=== PATIENT | female | born 1980 | race Asian ===

== ENCOUNTER → 2016-08-03 17:42 | Observation (INO) ==
[2016-08-03 17:14] LABS: Bacteria,Urine Moderate per hpf (None-Few); Hyaline Casts,Urine None Seen per lpf (None-Few); RBC,Urine 0-3 per hpf (0-3); Squamous Epithelial Cell,Urine Many per lpf (None-Few)
[2016-08-03 17:17] LABS: Bilirubin,Urine Negative (Negative); Blood,Urine Trace-intact (Negative); Clarity,Urine Clear (Clear); Color,Urine Yellow (Yellow); Glucose,Urine (UA) Normal (Normal); Ketones,Urine Negative (Negative); Leukocyte Esterase,Urine Small (Negative); Nitrite,Urine Negative (Negative); Protein,Urine Negative (Neg-Trace); Specific Gravity,Urine 1.015 (1.010-1.025); Urobilinogen,Urine Normal (Normal)
--- NOTE | 2016-08-03 17:36 | OB/GYN Progress Note ---
Date of Encounter: 08/03/16 Time of Encounter: 17:33 - Assessment and Plan (1) Vaginal bleeding in Current Visit: Yes Status: Acute No evidence of bleeding by exam. RNST without uc's, CVX is closed. Abd non- tender. Will d/c home. Bleeding precuations given. Qualifiers: Trimester: third trimester Qualified Code(s): O46.93 - Antepartum hemorrhage, unspecified, third trimester (2) 33 weeks gestation of Current Visit: Yes Status: Acute Subjective - Subjective Principal diagnosis: 33 weeks gestation with bleeding Interval history: 36 yo female presents with blood noted x 1 on toilet paper when she wiped. No uc's and no lof. No UTI sx's. No recent trauma or SI. Objective - Vital Signs Vital Signs: Intake and Output 08/03/16 08/03/16 08/03/16 07:59 15:59 23:59 Other: Weight 69.6 kg Patient Weight 08/03/16 23:59 Weight 69.6 kg - Exam Auscultation: bilateral: normal Abdomen: Present: normal appearance Cervical dilation: cl/70/-2 Comments: SSE is negative, no blood in vaginal vault, no evidence of hemorrhoids, no evidence of vaginal trauma. - Labs Labs: Abnormal lab results Urine Blood Trace-intact (Negative) H 08/03/16 17:05 Ur Leukocyte Esterase Small (Negative) H 08/03/16 17:05 Urine Microscopic WBC 5-15 per hpf (0-3) H 08/03/16 17:05 Ur Squamous Epith Cells Many per lpf (None-Few) H 08/03/16 17:05 Urine Bacteria Moderate per hpf (None-Few) H 08/03/16 17:05 Ur Culture Indicated? YES (NO) A 08/03/16 17:05
--- NOTE | 2016-08-03 18:53 | OB/GYN Progress Note ---
Date of Encounter: 08/12/16 Time of Encounter: 18:32 - Assessment and Plan (1) Vaginal bleeding in Status: Acute No evidence of bleeding by exam. RNST without uc's, CVX is closed. Abd non- tender. Will d/c home. Bleeding precuations given. Qualifiers: Trimester: third trimester Qualified Code(s): O46.93 - Antepartum hemorrhage, unspecified, third trimester (2) 33 weeks gestation of Status: Acute Objective - Latest Vital Signs Latest vital signs: Intake and Output 08/03/16 08/03/16 08/03/16 07:59 15:59 23:59 Other: Weight 69.6 kg Patient Weight 08/03/16 23:59 Weight 69.6 kg - Labs Labs: Laboratory Results - last 24 hr 08/03/16 17:05 Urine Color Yellow Urine Clarity Clear Urine pH 7.0 Ur Specific [place] 1.015 Urine Protein Negative Urine Glucose (UA) Normal Urine Ketones Negative Urine Blood Trace-intact H Urine Nitrite Negative Urine Bilirubin Negative Urine Urobilinogen Normal Ur Leukocyte Esterase Small H Urine Microscopic RBC 0-3 Urine Microscopic WBC 5-15 H Ur Squamous Epith Cells Many H Urine Bacteria Moderate H Hyaline Casts None Seen Ur Culture Indicated? YES A
== END | disposition home or self-care (01) ==
LOC: 1NENULAB
PROVIDERS: ADMIT Obstetrics & Gynecology; ATTEND Obstetrics & Gynecology

== ENCOUNTER 2016-09-15 10:09 | Inpatient (IN) ==
[~2016-09-15 10:09] MED LIST: Famotidine 20 MG/2 ML VIAL IVP PRN; Naloxone 0.4 MG/ML INJ IVP PRN; Ondansetron 4 MG/2 ML VIAL IVP PRN
[2016-09-15 10:23] LABS: Basophils % 0.4 %; Eosinophils # 0.2 K/mcL (0.0-0.6); Eosinophils % 1.8 %; Hematocrit 34.4 % (35.3-44.9); Hemoglobin 11.1 g/dL (11.5-15.4); Immature Granulocytes % 1.6 % (0-4); Lymphocytes # 1.4 K/mcL (0.6-4.6); Lymphocytes % 16.9 %; Mean Corpuscular HGB Conc 32.3 g/dL (31.6-35.5); Mean Corpuscular Hemoglobin 28.9 pg (28.0-33.3); Mean Corpuscular Volume 89.6 fL (83.0-100.0); Mean Platelet Volume 9.8 fL (9.4-12.4); Monocytes # 0.7 K/mcL (0.0-1.3); Monocytes % 9.1 %; Neutrophils # 5.7 K/mcL (1.6-8.9); Platelet Count 151 K/mcL (140-400); Red Blood Count 3.84 M/mcL (3.82-4.97); Red Cell Distribution Width 14.4 % (11.5-14.5); Segmented Neutrophils % 70.2 %
[2016-09-15] MEDS ORDERED: Oxytocin 20 units/ LR 1000 mL 20 UNIT/1,000 ML BAG IVC SCH (11:30)
[2016-09-15] MEDS ORDERED: Oxytocin 20 units/ LR 1000 mL 20 UNIT/1,000 ML BAG IVC ONE (11:30)
[2016-09-15] MEDS: Ringers Solution, Lactated 1,000 ML IVC SCH ×2 (11:39→22:14)
--- NOTE | 2016-09-15 11:45 | Anesthesia Evaluation PreOp ---
Date of Encounter: 09/14/16 Time of Encounter: 11:43 - Past History Planned Operation: srinivasan Cardiac History: Denies any Significant Hx Pulmonary History: Former smoker (quit during ), Pack/yr (15) MANAGER PSYCHOLOGY History: Denies Any Significant HX Other Medical History: GERD Anesthesia History: No Prior Anesthetic Complications, Past Anesthesia (srinivasan x 3) : Yes Test: Positive Alcohol Use: none (during preg) Drug use: none Medications and Allergies Ferrous Sulfate 08/03/16 [History] Caplet 08/03/16 [History] Allergies dextromethorphan [From NyQuil] Allergy (Mild, Verified 03/19/15 10:48) Difficulty Breathing doxylamine [From NyQuil] Allergy (Mild, Verified 03/19/15 10:48) Difficulty Breathing pseudoephedrine [From NyQuil] Allergy (Mild, Verified 03/19/15 10:48) Difficulty Breathing - Meds/Allergy Pre-op Review Medications Reviewed: Yes Allergies Reviewed: Yes Beta Blockers on Current Med List: No Anesthesia Results - Labs 09/15/16 10:00 Anesthesia Exam 97.8 83 12 119/73 fht 144 Height: 5'2" Weight: 71 kg NPO (# of Hours): 2 Pain Scale: 2 Pain Scale Used: Numeric (1 - 10) - HEENT Pupil (Motor): Pupils equal Mallampati: II Teeth: Normal Oral Opening: Greater than 3 - MANAGER PSYCHOLOGY LOC: Oriented MANAGER PSYCHOLOGY Motor: Normal RUE, Normal LUE, Normal RLE, Normal LLE, Normal Face MANAGER PSYCHOLOGY Sensory: Normal: RUE, LUE, RLE, LLE, Face - Cardiac Rhythm: Regular Murmur: None - Pulmonary Breath Sounds: bilateral Clear Respiratory Effort: Symmetrical Anesthesia Assess/Plan ASA Score: 2 Modified Asbury Scale for Level of Consciousness: Cooperative, oriented, and tranquil Anesthetic Plan: Regional Autologous Blood: No Monitoring Plan: Standard Monitors Recovery Plan: Other (risks discussed, questions answered, consented)
--- NOTE | 2016-09-15 11:47 | OB/GYN History & Physical ---
Date of Encounter: 09/15/16 Time of Encounter: 11:46 Assessment and Plan (1) Rupture of membranes Current visit: Yes Status: Acute ok for epidural, start pitocin for IOL, anticipate History of Present Illness HPI: Ms. Ferrari is a 36 year old female @ 39+3 weeks who presented with complaints of leaking of fluid @ 7am, no bleeding, currently not edilia, GBS neg. Past Med Surg Social Fam HX - Past Medical History Medical history: no medical history Psychiatric history: no psych history - Past Surgical History Surgical History: no surgical history - Social History Smoking Status: Former smoker Smokeless Tobacco Status: No Alcohol use: none (during preg) Drug use: none - Family History Mother Family Member Ethnicity: Living Status: Still Living Hx Family Cardiac Disorders: No Hx Family Respiratory Disorders: No Hx Family Cancer: No Hx Family GI Disorders: No Hx Family Genitourinary Disorders: No Hx Family Endocrine Disorder: No Hx Family Musculoskeletal Disorders: No Hx Family Neuromuscular Disorders: No Hx Family Neurologic Disorders: No Hx Family HEENT Disorders: No Hx Family Autoimmune Disorders: No Hx Family Reproductive Disorders: No Hx Family Psychosocial Disorders: No Hx Family Medical Disorders: No Obstetrical History - Pregnancies : 5 Para: 3 Term: 3 Ab's: 1 Livin Medications and Allergies Ferrous Sulfate 08/03/16 [History] Caplet 08/03/16 [History] Allergies dextromethorphan [From NyQuil] Allergy (Mild, Verified 03/19/15 10:48) Difficulty Breathing doxylamine [From NyQuil] Allergy (Mild, Verified 03/19/15 10:48) Difficulty Breathing pseudoephedrine [From NyQuil] Allergy (Mild, Verified 03/19/15 10:48) Difficulty Breathing Review of System OB All systems PM: reviewed and no additional remarkable complaints except as stated Exam - Constitutional Constitutional: well developed - HEENT HEENT: PERRL - Neck Neck exam: supple - Lungs Respiratory exam: CTAB - Cardiovascular Cardiovascular exam: RRR - Extremities Extremities exam: warm - Cervix Dilation: 4 Effacement: 90 Station: -2 Results Result Diagrams: 09/16/16 04:32 Abnormal lab results Hgb 11.1 g/dL (11.5-15.4) L 09/15/16 10:00 Hct 34.4 % (35.3-44.9) L 09/15/16 10:00 All other labs normal. - VTE Reasons for not Prescribing Prophylaxis: Treatment not Indicated - Low risk for VTE
[2016-09-15] MEDS ORDERED: *HR* FentaNYL (PF) 100 MCG/2 ML VIAL EP ONE (13:40)
[2016-09-15] MEDS ORDERED: *HR* Ropivacaine/PF 0.2% 10 ML AMPUL EP ONE (13:40)
[2016-09-15] MEDS ORDERED: *HR* Nalbuphine 20 MG/ML AMPUL ONE (13:41)
[2016-09-15] MEDS ORDERED: *HR* FentaNYL (PF) 100 MCG/2 ML VIAL ONE (13:42)
[2016-09-15] MEDS ORDERED: *HR* Ropivacaine/PF 0.2% 10 ML AMPUL ONE (13:42)
[2016-09-15] MEDS ORDERED: Epidural Premix (fent/bupiv) 110 ML EP ONE ×2 (13:43→22:20)
[2016-09-15] MEDS ORDERED: Epidural Premix (fent/bupiv) 110 ML EP SCH (13:45)
--- NOTE | 2016-09-15 14:12 | Anesthesia Procedures ---
Date of Encounter: 09/15/16 Time of Encounter: 14:10 Procedures: Anesthesia - Epidural/Spinal Patient examined: Yes OB Eval: Gestational age: 39.2 OB Eval: : 4 OB Eval: Hx Para: 3 OB Eval: Dilated at (cm): 5 OB Eval: Contractions: Non-stressed pattern Consent Obtained: Yes Supplemental Oxygen: None/Room Air Site Prep: Aseptic Technique, 0.5% Chlorhexidine/Alcohol Patient position: upright Local Anesthetic: Lidocaine 1% Amount of Local Anesthetic used: 3 Touhy Needle Gauge: 18 Touhy Needle Depth (cm): 8 Catheter Depth at Skin (cm): 18 Test Dose (1.5% Lido + Epi): Volume given (mls): 3 Test Dose Result: Negative Loading Dose: Fentanyl (mcg): 100 Loading Dose: Other: rop 0.2 10cc Loading Dose Administered: Thru Touhy Needle Infusion Med: 0.125% Bupivacaine w/ 2 mcg/ml Fentanyl Infusion Rate (mls/hr): 14 (pcea 5cc q30") Catheter Secured in Place: Tegaderm Interspace Used: L2-L3 Loss of Resistance (JORDAN): Yes Blood: No CSF: No Paresthesia: No Procedure: aseptic, no complications, effective Vitals + FHT's: 110/78 66 fht 142
--- NOTE | 2016-09-15 14:38 | OB Labor Progress Note ---
Date of Encounter: 09/15/16 Time of Encounter: 14:36 Labor Progress Note - Subjective Subjective: patient now has an epidural - Vital Signs Vital Signs: VSS - Cervix Cervix: 5cm - Heart Tones Heart Tones: FHT CAT 1 - Plan Plan: continue pitocin, now @ 8, anticipate
--- NOTE | 2016-09-15 16:51 | OB Labor Progress Note ---
Date of Encounter: 09/15/16 Time of Encounter: 16:51 Labor Progress Note - Subjective Subjective: patient doing well - Vital Signs Vital Signs: VSS - Cervix Cervix: 9cm - Heart Tones Heart Tones: 135/mod tara/+accels, non recurrent tara decels - Plan Plan: cont labor progress, anticipate
--- NOTE | 2016-09-15 20:20 | OB Labor Progress Note ---
Date of Encounter: 09/15/16 Time of Encounter: 20:18 Labor Progress Note - Plan Plan: patient is pushing, FHT CAT 2, head @ +1, C/S for indications
[2016-09-15] MEDS ORDERED: Acetaminophen 325 MG TABLET PO ONE (21:43)
[2016-09-15] MEDS: Piperacillin/Tazobactam 3.375 GM in D5% in Water (Mini-Bag+) 100 ML IVPB SCH (22:09)
[2016-09-15] MEDS ORDERED: Metoclopramide 10 MG/2 ML VIAL IVP PRN (23:14)
--- NOTE | 2016-09-15 23:17 | OB Labor Progress Note ---
Date of Encounter: 09/15/16 Time of Encounter: 23:09 Labor Progress Note - Plan Plan: I went in to talk to the patient regarding doing a C section. I recommended a C/ S based on 1. arrest of descent 2. CAT tracing (patient keeps having late decels), 3. chorioamnionitis, currently on Zosyn. I explained tat even though this is not an emergency, I believe it is the best next step in management. She signed her tubal papers in May so I will be doing a btl as well. Anesthesia informed.
[2016-09-15] MEDS ORDERED: Chloroprocaine/PF 20 ML VIAL INFILT ONE (23:30)
[2016-09-15] MEDS ORDERED: *HR* HYDROmorphone (PF) 1 MG/ML SYRINGE IVP PRN (23:33)
[2016-09-15] MEDS ORDERED: Ringers Solution, Lactated 1,000 ML ONE (23:36)
[2016-09-15] MEDS ORDERED: *HR* Oxytocin 10 UNIT/ML VIAL IM ONE (23:49)
[2016-09-16] MEDS ORDERED: *HR* Morphine Sulfate/PF 5 MG/10 ML AMPUL ONE (00:14)
[2016-09-16] MEDS ORDERED: Bupivacaine-MPF 0.25% 10 ML VIAL ONE ×2 (00:23→00:48)
[2016-09-16] MEDS ORDERED: *HR* FentaNYL (PF) 100 MCG/2 ML VIAL ONE (00:53)
[2016-09-16] MEDS ORDERED: Chloroprocaine/PF 20 ML VIAL INFILT ONE (01:10)
[2016-09-16] MEDS ORDERED: Simethicone 80 MG TAB.CHEW PO PRN (01:22)
[2016-09-16] MEDS ORDERED: Sennosides 8.6 MG TABLET PO PRN (01:22)
[2016-09-16] MEDS ORDERED: Ondansetron 4 MG/2 ML VIAL IVP PRN (01:22)
[2016-09-16] MEDS ORDERED: Metoclopramide 10 MG/2 ML VIAL IVP PRN (01:22)
[2016-09-16] MEDS ORDERED: *HR* HYDROmorphone (PF) 1 MG/ML SYRINGE IVP PRN (01:29)
[2016-09-16] MEDS ORDERED: Ringers Solution, Lactated 1,000 ML IVC SCH (01:30)
[2016-09-16] MEDS ORDERED: Oxytocin 20 units/ LR 1000 mL 20 UNIT/1,000 ML BAG IV SCH (01:30)
[2016-09-16 04:54] LABS: Hemoglobin 10.3 g/dL (11.5-15.4); Mean Corpuscular HGB Conc 32.2 g/dL (31.6-35.5); Mean Corpuscular Hemoglobin 29.4 pg (28.0-33.3); Mean Corpuscular Volume 91.4 fL (83.0-100.0); Mean Platelet Volume 10.6 fL (9.4-12.4); Platelet Count 147 K/mcL (140-400); Red Cell Distribution Width 14.4 % (11.5-14.5)
[2016-09-16 05:12] LABS: Neutrophils # 21.6 K/mcL (1.6-8.9); Platelet Estimate Slight Decrease (Normal)
[2016-09-16] MEDS ORDERED: Oxytocin 20 UNIT in 0.9 % Sodium Chloride 1,000 ML IM SCH (06:18)
[2016-09-16] MEDS: Piperacillin/Tazobactam 3.375 GM in D5% in Water (Mini-Bag+) 100 ML IVPB SCH ×3 (06:25→21:43)
--- NOTE | 2016-09-16 06:43 | OB/GYN Procedure Note ---
Section - Date of procedure: 09/16/16 Preop diagnosis: arrest of descent, category 2 FHT tracing, other (chorio) Post-op diagnosis: same Procedure: section, primary low transverse, bilateral tubal ligation Surgeon: Roderick Stephens Estimated blood loss (cc): 600 Anesthesiologist: Osmany Chawla Director Quality Systems: Erasto Sol Anesthesia Type: Epidural section complications: none Disposition: L&D Recovery Room Specimens: Placenta, Right tube segment, Left tube segment - (s) Infant A Delivery Date: 09/16/16 Delivery Time: 00:08 Presentation: vertex Position: unknown Gender: Male Gram Weight: 4.055 kg at 1 minute: 8 at 5 minutes: 9 Shoulder Dystocia: not encountered Placenta: complete extraction Cord: nuchal cord, 3 umbilical vessels - Narrative Narrative: Patient was brought to the operating room with satisfactory epidural anesthesia. The abdomen was prepped and draped in a sterile fashion. A Pfannenstiel incision was made and carried sharply down to the level of fascia. The fascia was incised transversely. The fascia was dissected away from the underlying rectus muscles. With sharp and blunt dissection, rectus muscles were divided in midline. The perineum was entered bluntly. The incision was carried vertically with scissors. Transverse incision was made across the bladder peritoneum. The bladder was dissected away from the underlying lower uterine segment. Bladder retractor was placed to protect the bladder. The lower uterine segment was entered sharply with a scalpel. Incision was manually extended. Meconium stained amniotic fluid was encountered. The 's head was pulled up and delivered easily as were the shoulders and body. The mouth and oropharynx were suctioned. The cord was clamped and cut. The was passed off to the waiting media relations manager in satisfactory condition. APGARS 8/9. Placenta was extracted completely and found to be intact. Uterus was explored and found to be empty. Uterus was delivered through the abdominal incision and massaged vigorously. Intravenous Pitocin was administered. Clamps were placed about the margins of the uterine incision, which was closed primarily with a running locking stitch of 0 Vicryl with adequate hemostasis. Secondary running locking stitch was placed for extra strength to the wound. At this point, attention was diverted to the patient's tubes, a Raul clamp grasped the isthmic portion of each tube and approximately 1-cm knuckle on either side was tied off with two lengths of 0 plain catgut. Intervening knuckle was excised and passed off the field. The proximal end of the tubal mucosa was cauterized. Cul-de-sac and gutters were suctioned vigorously. The uterus was returned to its proper anatomic position in the abdomen. The fascia was closed with a simple running stitch of 0 vicryl. The skin was closed with running subcuticular of 4-0 vicryl. Uterus was expressed of its contents. Patient was brought to the recovery room in satisfactory condition. There were no complications. There was 600 cc of blood loss. All sponge, needle, and instrument counts were reported to be correct.
[2016-09-16] MEDS: Prenatal Vit/FA 1 EACH TABLET PO SCH (08:03)
[2016-09-16] MEDS: *HR* OxyCODONE/APAP 5/325 TABLET PO PRN (11:48)
[2016-09-16] MEDS: Ibuprofen 600 MG TABLET PO PRN (15:23)
[2016-09-16] MEDS: Oxytocin 20 UNIT in 0.9 % Sodium Chloride 1,000 ML IM SCH (17:37)
[2016-09-17] MEDS: *HR* OxyCODONE/APAP 5/325 TABLET PO PRN ×2 (00:35→09:31)
[2016-09-17] MEDS: Oxytocin 20 UNIT in 0.9 % Sodium Chloride 1,000 ML IM SCH (01:39)
[2016-09-17] MEDS: Ibuprofen 600 MG TABLET PO PRN (02:32)
--- NOTE | 2016-09-17 06:28 | Discharge Summary ---
Date of Encounter: 09/17/16 Time of Encounter: 06:30 - Discharge Diagnosis (1) delivery delivered Priority: Primary Status: Acute Comments: Pt meeting all milestone. No BM, but passing flatus. Pt states pain is managed by po medication. Desires discharge. - Discharge Medications Prescriptions: OxyCODONE/APAP 5/325 [Percocet 5/325 MG] 1 each PO Q4HR PRN #30 tablet PRN Reason: Moderate pain 4-6 Ibuprofen [Motrin] 600 mg PO Q6HR PRN #60 tablet PRN Reason: Cramping Docusate [Colace] 100 mg PO BID #60 capsule Home Medications: Caplet 08/03/16 [History] Docusate [Colace] 100 mg PO BID #60 capsule 09/17/16 [Rx] Ibuprofen [Motrin] 600 mg PO Q6HR PRN #60 tablet 09/17/16 [Rx] OxyCODONE/APAP 5/325 [Percocet 5/325 MG] 1 each PO Q4HR PRN #30 tablet 09/17/16 [Rx] Allergies/Adverse Reactions: Allergies dextromethorphan [From NyQuil] Allergy (Mild, Verified 03/19/15 10:48) Difficulty Breathing doxylamine [From NyQuil] Allergy (Mild, Verified 03/19/15 10:48) Difficulty Breathing pseudoephedrine [From NyQuil] Allergy (Mild, Verified 03/19/15 10:48) Difficulty Breathing Data Procedures and tests throughout hospitalization: Laboratory Tests 09/15/16 09/16/16 10:00 04:32 WBC 8.1 24.5 H D RBC 3.84 3.50 L Hgb 11.1 L 10.3 L Hct 34.4 L 32.0 L MCV 89.6 91.4 MCH 28.9 29.4 MCHC 32.3 32.2 RDW 14.4 14.4 Plt Count 151 147 MPV 9.8 10.6 Immature Gran % 1.6 Seg Neutrophils % 70.2 58.0 Band Neutrophils % 30.0 H Lymphocytes % 16.9 4.0 Monocytes % 9.1 8.0 Eosinophils % 1.8 Basophils % 0.4 Neutrophils # 5.7 21.6 H Lymphocytes # 1.4 1.0 Monocytes # 0.7 2.0 H Eosinophils # 0.2 Basophils # 0.0 Platelet Estimate Slight Decrease L Date of admission: 09/15/16 10:09 Primary care physician: PCP NO Discharging clinician: Analia Duenas Anticipated date of discharge: 09/17/16 - Patient Status Disposition: Home, Self-Care Condition: Good Functional capacity at discharge: independent ambulation Overall status at discharge: patient is back to baseline - Discharge Instructions Follow Up With: Roderick Stephens MD [Partnered Physician] - (October 01, 2016 @ 1:30 pm) JOSE,PCP [Primary Care Provider] - - Diet and Activity Activity: increase activity as tolerated Diet: regular diet Hospital Course Reason for admission: section Delivery: section Episiotomy: none Laceration: none Other procedures: tubal ligation complications: none Discharge diagnosis: IUP at term delivered baby: male Hospital course: Section - Date of procedure: 09/16/16 Preop diagnosis: arrest of descent, category 2 FHT tracing, other (chorio) Post-op diagnosis: same Procedure: section, primary low transverse, bilateral tubal ligation Surgeon: Roderick Stephens Estimated blood loss (cc): 600 Anesthesiologist: Osmany Chawla Laydown Machine Operator: Erasto Sol Anesthesia Type: Epidural section complications: none Disposition: L&D Recovery Room Specimens: Placenta, Right tube segment, Left tube segment - (s) Infant A Infant Delivery Date: 09/16/16 Infant Delivery Time: 00:08 Presentation: vertex Position: unknown Gender: Male Gram Weight: 4.055 kg at 1 minute: 8 at 5 minutes: 9 Shoulder Dystocia: not encountered Placenta: complete extraction Cord: nuchal cord, 3 umbilical vessels Pt in stable condition and appropriate for discharge. OAR[facility] report reviewed Time Attestation: Total time spent providing and/or coordinating discharge services: Time Spent: Less than 30 minutes - VTE Reasons for not Prescribing Prophylaxis: Treatment not Indicated - Low risk for VTE Documentation of Mechanical Device: Intermittent pneumatic compression device Exam - Constitutional Vitals: Temp Pulse Resp BP Pulse Ox 97.9 F 90 18 111/70 96 09/16/16 20:00 09/16/16 20:00 09/16/16 20:00 09/16/16 20:00 09/16/16 20:00 General appearance IM: A&O X 3 - Respiratory Respiratory exam: Present: CTAB - Cardiovascular Cardiovascular exam IM: Present: RRR, +S1, +S2 - GI/Abdominal GI/Abdominal exam IM: normal bowel sounds, soft Incision: dressed - Uterine Tone: Firm - Extremities Exam Extremities exam IM: Present: normal inspection - Neurological Exam Neurological exam: oriented X3 - Psychiatric Additional comments: Pt reports good mood. Concerned over instructions not to drive. Reinforced with patient. Pt states worried about ex- getting mad and requests note stating she can not drive for 2 weeks. Told patient it will be on her discharge instructions.
[2016-09-17] MEDS: Piperacillin/Tazobactam 3.375 GM in D5% in Water (Mini-Bag+) 100 ML IVPB SCH (08:01)
[2016-09-17] MEDS: Prenatal Vit/FA 1 EACH TABLET PO SCH (09:31)
[2016-09-17 09:36] VITALS: BP 121/80
== END 2016-09-17 14:45 | disposition home or self-care (01) | DRG 540 ==
LOC: 1NENULAB → 1NENUOBS 09-16 03:52
PROVIDERS: ADMIT Student in an Organized Health Care Education/Training Program; ATTEND Student in an Organized Health Care Education/Training Program